=== PATIENT | male | born 1985 | race Caucasian/White ===

== ENCOUNTER 2018-08-06 21:48 | Emergency (ER) | payer SELFPAY ==
[2018-08-06 21:53] VITALS: BP 144/69; PULSE 88; RESP 15; TEMP 36.6; O2SAT 99
--- NOTE | 2018-08-06 21:56 | W.ED.GENAD ---
Discharge Plan Disposition Patient Disposition: HOME Condition: Good Discharge Details Chief Complaint: RashLesion Clinical Impression: Tinea cruris Primary Care Provider: Beronica De Souza ED Provider: Patrice Carlos Meds and New Rx's Prescriptions: New ketoconazole 2 % cream 1 applic TP DAILY Qty: 30 RF: 0 Discharge Instructions Instructions: Jojuan Itch (ED) Additional Instructions: Apply cream once a day for 2 weeks. Follow-up with primary care for does not get better. Return to ED if problem Referrals: Beronica De Souza MD, [place] [Primary Care Provider] - Medical Decision Making Patient with rash in the groin consistent with ringworm/tinea cruris. Patient will be placed on ketoconazole cream to use for the next 2-4 weeks. Follow-up with primary care for does not get better. Return to ED if problems. HPI General Mode of arrival: ambulatory. Date/Time Provider Initiated Documentation: 08/06/18 21:54. Limitations to Documentation: no limitations. Information obtained by: patient. HPI Narrative: Patient presents to ED with a rash in his groin area that is been present for about a month - month and a half. It is itchy and a little bit painful. He has tried hydrocortisone cream as well as athlete's foot cream with no results. He has not had time to see his primary care. He denies rash elsewhere. He denies other complaints Related Data Home Medications Medication Instructions Recorded Confirmed ketoconazole 1 applic TP DAILY #30 gm 08/06/18 Previous Rx's Medication Instructions Recorded ketoconazole 1 applic TP DAILY #30 gm 08/06/18 Allergies Allergy/AdvReac Type Severity Reaction Status Date / Time ibuprofen AdvReac Intermediate upsets Unverified 08/06/18 22:01 stomach General Stated Complaint: RashLesion DARYA: 4 Review of Systems Constitutional Denies chills and Denies fever(s) Genitourinary Denies hematuria and Denies dysuria Integumentary/Breasts Reports rash [facility] Social History Smoking/Tobacco Use Status: Current, status unknown Surgical History S/P ACL repair (Inactive) Exam Const General: cooperative, comfortable and no acute distress Orientation: alert and oriented x3 Skin Rashes: rashes noted (Erythematous type rash raised border central clearing mostly in ring form) groin Neuro General: alert, oriented x3, no focal motor deficits and CN's II-XI intact bilaterally
[2018-08-06 22:23] VITALS: BP 144/69; PULSE 88; RESP 15; TEMP 36.6; O2SAT 99
== END 2018-08-06 22:27 | disposition home or self-care (01) ==
PROVIDERS: Emergency Provider Emergency Medicine; PCP Family Medicine
DX: B35.6 Tinea cruris (principal)
CPT/HCPCS: 99283

== ENCOUNTER 2018-08-11 20:05 | Emergency (ER) | payer SELFPAY ==
[2018-08-11 20:07] VITALS: BP 134/82; PULSE 92; RESP 16; TEMP 36.9; O2SAT 100
[2018-08-11] MEDS: Lidocaine/Epinephri/Tetracaine Topical Gel 3 ML (20:37)
[2018-08-11] MEDS: Cephalexin 500 MG CAP PO (20:44)
--- NOTE | 2018-08-11 20:44 | ED.GENADUL_ITS ---
Discharge Plan Disposition Patient Disposition: HOME Condition: Stable Discharge Details Chief Complaint: Cellulitis Clinical Impression: Abscess of forearm, right, Cellulitis Primary Care Provider: Beronica De Souza ED Provider: Rogers Godoy Home Meds and New Rx's Prescriptions: New cephalexin [Keflex] 500 mg capsule 500 mg PO QID Qty: 28 RF: 0 No Action ketoconazole 2 % cream 1 applic TP DAILY Qty: 30 RF: 0 Discharge Instructions Instructions: Cellulitis (ED), Abscess (ED) Additional Instructions: Watch for any significant worsening of your symptoms or lack of improvement after 48 hours of antibiotic and if these occur return immediately to the emergency department for reevaluation. Otherwise take your antibiotics until fully complete and keep wound clean and dry. Perform dressing changes twice a day starting tomorrow. Referrals: Beronica De Souza MD, [place] [Primary Care Provider] - (As needed for reassessment) Medical Decision Making Patient presenting the emergency department for chief complaint of right arm injury with redness and swelling. Patient states approximately 1 week ago he was at work and working underneath a vehicle and using a torch when an sandra fell into his sleeve of his arm. That night he thought he just had a superficial abrasion over the past week he has noticed increasing redness, swelling, and discomfort to the area. Patient denies any other injury or trauma or other symptoms. Physical exam is positive for right erythematous forearm with 2 areas of induration and superficial abrasion. Bedside ultrasound was utilized to assess for any fluctuance and 2 areas were seen with concerning findings of abscess formation. Did discuss with patient risk versus benefit of I&D and he agreed to have procedure done. Topical let was placed on superficial skin prior to injection. Please see procedure note for I&D. Minimal amount of purulence was noted or expressed from the wound. Minimal complications. Patient placed upon Keflex 4 times daily for 1 week and encouraged to return for any new or significant worsening of symptoms. After discussion of diagnosis and plan of care patient has no further needs, questions, or concerns and states clear understanding to return to the emergency department for any worsening symptoms. HPI General Mode of arrival: ambulatory . Date/Time Provider Initiated Documentation: 08/11/18 20:10 . Limitations to Documentation: no limitations . Information obtained by: patient and RN notes reviewed . History of Present Illness 33 year old M presents to the emergency department with the chief complaint of Right arm infection, described as mild, with intensity rated at 4. Quality is described as other (pressure), and is localized to the right and upper extremity. Patient started experiencing this week(s) (1) and it has been constant. No exacerbating factors reported . Patient notes no other symptoms.. Patient did receive the following treatments prior to arrival, none Related Data Home Medications Medication Instructions Recorded Confirmed ketoconazole 1 applic TP DAILY #30 gm 08/06/18 08/11/18 cephalexin [Keflex] 500 mg PO QID #28 cap NS 08/11/18 Previous Rx's Medication Instructions Recorded ketoconazole 1 applic TP DAILY #30 gm 08/06/18 cephalexin [Keflex] 500 mg PO QID #28 cap NS 08/11/18 Allergies Allergy/AdvReac Type Severity Reaction Status Date / Time ibuprofen AdvReac Intermediate upsets Unverified 08/11/18 20:12 stomach General Stated Complaint: Cellulitis DARYA: 3 Review of Systems Constitutional Denies chills, Denies fatigue and Denies fever(s) Cardiovascular Denies chest pain and Denies dyspnea Respiratory Denies dyspnea Integumentary/Breasts Reports as per HPI and Reports wounds Endocrine Denies fatigue PFSH Social History Smoking/Tobacco Use Status: Current, status unknown Surgical History S/P ACL repair (Inactive) Exam Const General: cooperative, healthy appearing, comfortable and no acute distress Nutritional Appearance: average body habitus Orientation: alert, awake and oriented x3 Resp Effort & Inspection: normal respiratory effort and able to speak in complete sentences Skin General skin exam: erythema (To right forearm with 2 areas of abrasion and induration) Course Vital Signs Temperature 36.9 C 08/11/18 20:07 Pulse 92 H 08/11/18 20:07 Respiratory Rate 16 08/11/18 20:07 Blood Pressure 134/82 08/11/18 20:07 Pulse Oximetry 100 08/11/18 20:07 Temperature 36.9 C 08/11/18 20:07 Temperature Source Skin 08/11/18 20:07 Pulse 92 H 08/11/18 20:07 Respiratory Rate 16 08/11/18 20:07 Respiratory Effort 08/11/18 20:10 Blood Pressure 134/82 08/11/18 20:07 Blood Pressure Position Sitting 08/11/18 20:07 Pulse Oximetry 100 08/11/18 20:07 Oxygen Delivery Method Room Air 08/11/18 20:07 Oxygen Flow Rate 0 08/11/18 20:07 Pain Level 4 08/11/18 20:07 Procedures Abscess I/D Site: Upper Extremity Side (if applicable): Right Sedation/analgesia: None Local Anesthetic: Lidocaine 1% Amount of anesthesia used (mL): 8 Technique: Needle Aspiration and Incised with #11 Blade Amount of fluid expressed (mL): 1 Irrigation: Yes Packing used?: None Complications: Bleeding
[2018-08-11] MEDS: Cephalexin 500 MG CAP 1500 MG PO (20:55)
[2018-08-11 21:34] VITALS: BP 134/82; PULSE 92; RESP 16; TEMP 36.9; O2SAT 100
== END 2018-08-11 21:34 | disposition home or self-care (01) ==
LOC: ER 21:44
PROVIDERS: Emergency Provider Nurse Practitioner Family; PCP Family Medicine
DX: L02.413 Cutaneous abscess of right upper limb (principal)
CPT/HCPCS: 10060

== ENCOUNTER 2018-12-12 17:54 | Emergency (ER) | payer BC, SELFPAY ==
--- NOTE | 2018-12-12 17:59 | DI.RAD_ITS ---
SYMPTOM/DIAGNOSIS: PAIN, S/P CRUSH INJURY LEFT HAND: Three views. There is a fracture seen in the neck of the left fifth metacarpal. The distal fracture is angulated anteriorly. No other fracture or dislocation is seen. No radiopaque foreign bodies are seen in the soft tissues.
--- NOTE | 2018-12-12 17:59 | W.ED.GENAD ---
Discharge Plan Disposition Patient Disposition: HOME Condition: Stable Discharge Details Chief Complaint: Orthopedic Clinical Impression: Fracture of fifth metacarpal bone of left hand Primary Care Provider: Beronica De Souza ED Provider: Emerson Wesley Home Meds and New Rx's Prescriptions: No Action ketoconazole 2 % cream 1 applic TP DAILY Qty: 30 RF: 0 cephalexin [Keflex] 500 mg capsule 500 mg PO QID Qty: 28 RF: 0 Discharge Instructions Instructions: Boxer Fracture (ED) Additional Instructions: call orthopedics tomorrow for an appointment if you have pain you can take 1000mg tylenol and 600mg ibuprofen every 6 hours for pain as needed Stand Alone Forms: Work Release Referrals: Amador Stratton MD [ [facility] STAFF PHYSICIAN] - Medical Decision Making 33 yo male states on Wednesday logs fell and landed on his left hand, has had pain since so came here tonight for an eval. Denies loc or hitting head, no pain elsewhere. Has intact sensation, cap refill less than 2 seconds. Has pain over mid 5th and 4th metatarsal, no pain in wrist, full rom of the wrist and no scaphoid tenderness, no findings to suggest wrist fx or injury. Will xray hand to eval for fx xray on my read shows 5th metacarapal fx. will have him f/u with ortho, placed in boxer's splint Differential Diagnosis contusion, sprain, strain Imaging Data Radiologic Study: Attestation: I personally reviewed and interpreted this imaging study as follows: Imaging: X-Ray My impression: 5th metacarpal fx HPI General Mode of arrival: ambulatory. Date/Time Provider Initiated Documentation: 12/12/18 17:56. Limitations to Documentation: no limitations. Information obtained by: patient. History of Present Illness 33 year old M presents to the emergency department with the chief complaint of left hand pain, described as moderate, with intensity rated at 6. Quality is described as aching, and is localized to the left and upper extremity. Patient reports no radiation. Patient started experiencing this day(s) (2) and it has been constant. Rest improves symptom(s), Movement worsens symptoms . Patient notes no other symptoms.. Patient did receive the following treatments prior to arrival, none Related Data Home Medications Medication Instructions Recorded Confirmed ketoconazole 1 applic TP DAILY #30 gm 08/06/18 08/11/18 cephalexin [Keflex] 500 mg PO QID #28 cap NS 08/11/18 Previous Rx's Medication Instructions Recorded ketoconazole 1 applic TP DAILY #30 gm 08/06/18 cephalexin [Keflex] 500 mg PO QID #28 cap NS 08/11/18 Allergies Allergy/AdvReac Type Severity Reaction Status Date / Time ibuprofen AdvReac Intermediate upsets Unverified 08/11/18 20:12 stomach General DARYA: 3 Review of Systems Review of Systems All systems reviewed & are unremarkable except as noted in HPI and below Constitutional Denies chills and Denies fever(s) ENT Denies change in voice Cardiovascular Denies chest pain and Denies dyspnea Respiratory Denies cough and Denies dyspnea Gastrointestinal Denies abdominal pain, Denies nausea and Denies vomiting Genitourinary Denies dysuria Musculoskeletal Denies joint swelling Integumentary/Breasts Denies rash [facility] Social History Smoking and Tabacco status: Current, status unknown Exam Const General: no acute distress Orientation: alert [facility] Head: normal to inspection Ears: external ears normal General nose exam: external nose normal Mouth: moist mucous membranes Eyes General: appearance normal, both eyes and all related structures Neck Neck: normal visual inspection Resp Effort & Inspection: normal respiratory effort and able to speak in complete sentences Cardio Rate: regular rate Skin General skin exam: no rashes or lesions noted Neuro General: alert and oriented x3 Extrem General: normal capillary refill Psych Mental Status: mental status grossly normal
--- NOTE | 2018-12-12 18:00 | NUR.NOTE ---
pt crushed his left hand under a wood pile on Wednesday night. noted swelling
[2018-12-12 18:01] VITALS: BP 135/87; PULSE 64; RESP 14; TEMP 37.4; O2SAT 79
--- NOTE | 2018-12-12 18:02 | ED.GENADUL_ITS ---
Discharge Plan Disposition Patient Disposition: HOME Condition: Stable Discharge Details Chief Complaint: Orthopedic Clinical Impression: Fracture of fifth metacarpal bone of left hand Primary Care Provider: Beronica De Souza ED Provider: Emerson Wesley Home Meds and New Rx's Prescriptions: No Action ketoconazole 2 % cream 1 applic TP DAILY Qty: 30 RF: 0 cephalexin [Keflex] 500 mg capsule 500 mg PO QID Qty: 28 RF: 0 Discharge Instructions Instructions: Boxer Fracture (ED) Additional Instructions: call orthopedics tomorrow for an appointment if you have pain you can take 1000mg tylenol and 600mg ibuprofen every 6 hours for pain as needed Stand Alone Forms: Work Release Referrals: Amador Stratton MD [ [facility] STAFF PHYSICIAN] - Medical Decision Making 33 yo male states on Wednesday logs fell and landed on his left hand, has had pain since so came here tonight for an eval. Denies loc or hitting head, no pain elsewhere. Has intact sensation, cap refill less than 2 seconds. Has pain over mid 5th and 4th metatarsal, no pain in wrist, full rom of the wrist and no scap hoid tenderness, no findings to suggest wrist fx or injury. Will xray hand to eval for fx xray on my read shows 5th metacarapal fx. will have him f/u with ortho, placed in boxer's splint Differential Diagnosis contusion, sprain, strain Imaging Data Radiologic Study: Attestation: I personally reviewed and interpreted this imaging study as follows: Imaging: X-Ray My impression: 5th metacarpal fx HPI General Mode of arrival: ambulatory . Date/Time Provider Initiated Documentation: 12/12/18 17:56 . Limitations to Documentation: no limitations . Information obtained by: patient . History of Present Illness 33 year old M presents to the emergency department with the chief complaint of left hand pain, described as moderate, with intensity rated at 6. Quality is described as aching, and is localized to the left and upper extremity. Patient reports no radiation. Patient started experiencing this day(s) (2) and it has been constant. Rest improves symptom(s), Movement worsens symptoms . Patient notes no other symptoms.. Patient did receive the following treatments prior to arrival, none Related Data Home Medications Medication Instructions Recorded Confirmed ketoconazole 1 applic TP DAILY #30 gm 08/06/18 08/11/18 cephalexin [Keflex] 500 mg PO QID #28 cap NS 08/11/18 Previous Rx's Medication Instructions Recorded ketoconazole 1 applic TP DAILY #30 gm 08/06/18 cephalexin [Keflex] 500 mg PO QID #28 cap NS 08/11/18 Allergies Allergy/AdvReac Type Severity Reaction Status Date / Time ibuprofen AdvReac Intermediate upsets Unverified 08/11/18 20:12 stomach General DARYA: 3 Review of Systems Review of Systems All systems reviewed & are unremarkable except as noted in HPI and below Constitutional Denies chills and Denies fever(s) ENT Denies change in voice Cardiovascular Denies chest pain and Denies dyspnea Respiratory Denies cough and Denies dyspnea Gastrointestinal Denies abdominal pain, Denies nausea and Denies vomiting Genitourinary Denies dysuria Musculoskeletal Denies joint swelling Integumentary/Breasts Denies rash [facility] Social History Smoking and Tabacco status: Current, status unknown Exam Const General: no acute distress Orientation: alert [facility] Head: normal to inspection Ears: external ears normal General nose exam: external nose normal Mouth: moist mucous membranes Eyes General: appearance normal, both eyes and all related structures Neck Neck: normal visual inspection Resp Effort & Inspection: normal respiratory effort and able to speak in complete sentences Cardio Rate: regular rate Skin General skin exam: no rashes or lesions noted Neuro General: alert and oriented x3 Extrem General: normal capillary refill Psych Mental Status: mental status grossly normal
[2018-12-12] MEDS: Acetaminophen 500 MG TAB 1000 MG PO (18:04)
[2018-12-12 18:26] VITALS: BP 135/87; PULSE 64; RESP 14; TEMP 37.4; O2SAT 99
--- NOTE | 2018-12-12 18:48 | DI.VRAD_ITS ---
EXAM: XR Left Hand Complete, 3 or more Views EXAM DATE/TIME: 12/12/2018 5:59 PM CLINICAL HISTORY: 33 years old, male; Injury or trauma; Injury history: Dropped log on hand; Initial encounter; Blunt trauma (contusions or hematomas; Left TECHNIQUE: XR Left hand 3 or more views. COMPARISON: CR RIGHT THUMB 07/06/2016 10:50 PM FINDINGS: Bones/joints: Acute fracture, fifth metacarpal neck, mild dorsal apex angulation. No dislocation. Soft tissues: Dorsal hand soft tissue swelling. IMPRESSION: Acute fracture, fifth metacarpal neck, mild dorsal apex angulation. Dictated and Authenticated by: Paula Corcoran MD. Ordering:MELISSA Norman MD
== END 2018-12-12 18:26 | disposition home or self-care (01) ==
PROVIDERS: Emergency Provider Emergency Medicine; PCP Family Medicine
DX: S67.22XA Crushing injury of left hand, initial encounter (principal); S62.336A Displaced fracture of neck of fifth metacarpal bone, right hand, initial encounter for closed fracture; W23.0XXA Caught, crushed, jammed, or pinched between moving objects, initial encounter
CPT/HCPCS: 26600; 73130; L3807

== ENCOUNTER 2019-03-11 21:21 | Emergency (ER) | payer BC, SELFPAY ==
[2019-03-11 21:40] VITALS: BP 128/77; PULSE 78; RESP 79; TEMP 37; O2SAT 98
--- NOTE | 2019-03-11 21:51 | W.ED.GENAD ---
Discharge Plan Disposition Patient Disposition: HOME Condition: Stable Discharge Details Chief Complaint: Cellulitis Clinical Impression: Cellulitis and abscess of upper arm and forearm Primary Care Provider: Beronica De Souza ED Provider: Rogers Godoy Home Meds and New Rx's Prescriptions: Continued sertraline 25 mg tablet 25 mg PO DAILY Qty: 60 RF: 2 Discontinued doxycycline hyclate 100 mg tablet 100 mg PO BID 7 Days Qty: 14 RF: 0 Discharge Instructions Instructions: Cellulitis (ED) Additional Instructions: You may continue to apply warm packs 4 times daily for the next 3 to 4 days and take antibiotic as prescribed until fully complete. If any significant worsening of symptoms or rapid spread of redness return to the emergency department for reassessment otherwise follow-up with your primary care provider as needed Referrals: Beronica De Souza MD, [place] [Primary Care Provider] - (As needed for reassessment) Discharge Data Discharge Date/Time-TO BE ENTERED AT DEPARTURE: 03/12/19 00:05 Medical Decision Making Patient pending to the emergency department for chief complaint of right forearm abscess. Patient states that this began 3 days ago with a small pimple then progressively got worse. Patient saw his primary care yesterday morning and was placed up on doxycycline for concern of cellulitis. Patient states he has taken 3 doses and has only had worsening of symptoms. Bedside ultrasound was utilized to view the area of erythema and induration to the right forearm and showed fluid collection. Verbal consent was obtained for incision and drainage. Approximately hours of purulent bloody fluid was drained from the area and patient tolerated the procedure well except for a mild vasovagal episode that resolved quickly. Patient was switched from doxycycline to Keflex and Bactrim. I do not feel that patient had antibiotic failure but patient has responded well in the past to Keflex Bactrim. Return precautions discussed. After discussion of diagnosis and plan of care patient has no further needs, questions, or concerns and states clear understanding to return to the emergency department for any worsening symptoms. HPI General Mode of arrival: ambulatory. Date/Time Provider Initiated Documentation: 03/11/19 21:36. Limitations to Documentation: no limitations. Information obtained by: patient and RN notes reviewed. History of Present Illness 33 year old M presents to the emergency department with the chief complaint of Abscess, right forearm, described as moderate and similar to prior episodes, with intensity rated at 7. Quality is described as aching, and is localized to the right and upper extremity. Patient started experiencing this day(s) (3) and it has been constant. No relieving factors improve symptom(s), No exacerbating factors reported . Patient did receive the following treatments prior to arrival, other (Doxycycline) Related Data Home Medications Medication Instructions Recorded Confirmed sertraline 25 mg tablet 25 mg PO DAILY #60 tab 02/15/19 03/11/19 Previous Rx's Medication Instructions Recorded sertraline 25 mg tablet 25 mg PO DAILY #60 tab 02/15/19 Allergies Allergy/AdvReac Type Severity Reaction Status Date / Time ibuprofen AdvReac Intermediate upsets Unverified 03/11/19 21:39 stomach General Stated Complaint: Cellulitis DARYA: 3 Review of Systems Constitutional Denies chills and Denies fever(s) Gastrointestinal Denies nausea and Denies vomiting Musculoskeletal Denies deformity, Denies limited range of motion and Denies numbness Integumentary/Breasts Reports as per HPI Neurologic Denies numbness [facility] Surgical History S/P ACL repair (Inactive) Social History Smoking/Tobacco Use Status: Current, status unknown Tobacco Type: smokeless tobacco Alcohol Intake: never Drug use: Never Substance use type: does not use Do you feel safe at home: Yes Do you feel safe in your relationship?: Yes Exam Const General: cooperative and no acute distress Orientation: alert, awake and oriented x3 Resp Effort & Inspection: normal respiratory effort and able to speak in complete sentences Cardio Rate: regular rate Rhythm: regular rhythm Skin General skin exam: induration (And erythema to right proximal forearm) Course Vital Signs Temperature 37.0 C 03/11/19 21:40 Pulse 78 03/11/19 21:40 Respiratory Rate 79 H 03/11/19 21:40 Blood Pressure 128/77 03/11/19 21:40 Pulse Oximetry 98 03/11/19 21:40 Temperature 37.0 C 03/11/19 21:40 Pulse 78 03/11/19 21:40 Respiratory Rate 79 H 03/11/19 21:40 Respiratory Effort 03/11/19 21:40 Blood Pressure 128/77 03/11/19 21:40 Blood Pressure Position Sitting 03/11/19 21:40 Pulse Oximetry 98 03/11/19 21:40 Oxygen Delivery Method Room Air 03/11/19 21:40 Oxygen Flow Rate 0 03/11/19 21:40 Procedures Abscess I/D Site: Upper Extremity Side (if applicable): Right Sedation/analgesia: None Local Anesthetic: Lidocaine 1% Amount of anesthesia used (mL): 6 Technique: Incised with #11 Blade Amount of fluid expressed (mL): 3 Irrigation: Yes Packing used?: None
[2019-03-11] MEDS: Cephalexin 500 MG CAP PO (23:25)
[2019-03-11] MEDS: Sulfameth/Trimeth DS TAB 1 TAB PO (23:25)
--- NOTE | 2019-03-11 23:51 | ED.GENADUL_ITS ---
Discharge Plan Disposition Patient Disposition: HOME Condition: Stable Discharge Details Chief Complaint: Cellulitis Clinical Impression: Cellulitis and abscess of upper arm and forearm Primary Care Provider: Beronica De Souza ED Provider: Rogers Godoy Home Meds and New Rx's Prescriptions: Continued sertraline 25 mg tablet 25 mg PO DAILY Qty: 60 RF: 2 Discontinued doxycycline hyclate 100 mg tablet 100 mg PO BID 7 Days Qty: 14 RF: 0 Discharge Instructions Instructions: Cellulitis (ED) Additional Instructions: You may continue to apply warm packs 4 times daily for the next 3 to 4 days and take antibiotic as prescribed until fully complete. If any significant worsening of symptoms or rapid spread of redness return to the emergency department for reassessment otherwise follow-up with your primary care provider as needed Referrals: Beronica De Souza MD, [place] [Primary Care Provider] - (As needed for reassessment) Discharge Data Discharge Date/Time-TO BE ENTERED AT DEPARTURE: 03/12/19 00:05 Medical Decision Making Patient pending to the emergency department for chief complaint of right forearm abscess. Patient states that this began 3 days ago with a small pimple then progressively got worse. Patient saw his primary care yesterday morning and was placed up on doxycycline for concern of cellulitis. Patient states he has taken 3 doses and has only had worsening of symptoms. Bedside ultrasound was utilized to view the area of erythema and induration to the right forearm and showed fluid collection. Verbal consent was obtained for incision and drainage. Approximately hours of purulent bloody fluid was drained from the area and patient tolerated the procedure well except for a mild vasovagal episode that resolved quickly. Patient was switched from doxycycline to Keflex and Bactrim. I do not feel that patient had antibiotic failure but patient has responded well in the past to Keflex Bactrim. Return precautions discussed. After discussion of diagnosis and plan of care patient has no further needs, questions, or concerns and states clear understanding to return to the emergency department for any worsening symptoms. HPI General Mode of arrival: ambulatory . Date/Time Provider Initiated Documentation: 03/11/19 21:36 . Limitations to Documentation: no limitations . Information obtained by: patient and RN notes reviewed . History of Present Illness 33 year old M presents to the emergency department with the chief complaint of Abscess, right forearm, described as moderate and similar to prior episodes, with intensity rated at 7. Quality is described as aching, and is localized to the right and upper extremity. Patient started experiencing this day(s) (3) and it has been constant. No relieving factors improve symptom(s), No exacerbating factors reported . Patient did receive the following treatments prior to arrival, other (Doxycycline) Related Data Home Medications Medication Instructions Recorded Confirmed sertraline 25 mg tablet 25 mg PO DAILY #60 tab 02/15/19 03/11/19 Previous Rx's Medication Instructions Recorded sertraline 25 mg tablet 25 mg PO DAILY #60 tab 02/15/19 Allergies Allergy/AdvReac Type Severity Reaction Status Date / Time ibuprofen AdvReac Intermediate upsets Unverified 03/11/19 21:39 stomach General Stated Complaint: Cellulitis DARYA: 3 Review of Systems Constitutional Denies chills and Denies fever(s) Gastrointestinal Denies nausea and Denies vomiting Musculoskeletal Denies deformity, Denies limited range of motion and Denies numbness Integumentary/Breasts Reports as per HPI Neurologic Denies numbness [facility] Surgical History S/P ACL repair (Inactive) Social History Smoking/Tobacco Use Status: Current, status unknown Tobacco Type: smokeless tobacco Alcohol Intake: never Drug use: Never Substance use type: does not use Do you feel safe at home: Yes Do you feel safe in your relationship?: Yes Exam Const General: cooperative and no acute distress Orientation: alert, awake and oriented x3 Resp Effort & Inspection: normal respiratory effort and able to speak in complete sentences Cardio Rate: regular rate Rhythm: regular rhythm Skin General skin exam: induration (And erythema to right proximal forearm) Course Vital Signs Temperature 37.0 C 03/11/19 21:40 Pulse 78 03/11/19 21:40 Respiratory Rate 79 H 03/11/19 21:40 Blood Pressure 128/77 03/11/19 21:40 Pulse Oximetry 98 03/11/19 21:40 Temperature 37.0 C 03/11/19 21:40 Pulse 78 03/11/19 21:40 Respiratory Rate 79 H 03/11/19 21:40 Respiratory Effort 03/11/19 21:40 Blood Pressure 128/77 03/11/19 21:40 Blood Pressure Position Sitting 03/11/19 21:40 Pulse Oximetry 98 03/11/19 21:40 Oxygen Delivery Method Room Air 03/11/19 21:40 Oxygen Flow Rate 0 03/11/19 21:40 Procedures Abscess I/D Site: Upper Extremity Side (if applicable): Right Sedation/analgesia: None Local Anesthetic: Lidocaine 1% Amount of anesthesia used (mL): 6 Technique: Incised with #11 Blade Amount of fluid expressed (mL): 3 Irrigation: Yes Packing used?: None
== END 2019-03-12 00:05 | disposition home or self-care (01) ==
PROVIDERS: Emergency Provider Nurse Practitioner Family; PCP Family Medicine
DX: L03.113 Cellulitis of right upper limb (principal)
CPT/HCPCS: 99283

== ENCOUNTER 2020-06-23 21:19 | Emergency (ER) | payer OTHER, SELFPAY ==
[2020-06-23 21:23] VITALS: BP 141/61; PULSE 77; RESP 16; TEMP 37.1; O2SAT 87
--- NOTE | 2020-06-23 21:46 | ED.GENADUL_ITS ---
Discharge Plan Disposition Patient Disposition: HOME Condition: Stable Discharge Details Chief Complaint: Cellulitis Clinical Impression: Abscess of groin, left, Cellulitis of groin, left Primary Care Provider: Beronica De Souaz ED Provider: Ella Torres Home Meds and New Rx's Prescriptions: New sulfamethoxazole-trimethoprim [Bactrim DS] 800-160 mg tablet 1 tab PO BID 7 Days Qty: 14 RF: 0 Discharge Instructions Instructions: Abscess (ED) Additional Instructions: Drink plenty of fluids and get plenty of rest. Take Tylenol as needed and directed for pain. Take the antibiotics until finished. Return to the emergency department in 2 days for wound check and packing r emoval. Return immediately to the emergency department if you develop any worsening or new concerning symptoms. Discharge Data Discharge Date/Time-TO BE ENTERED AT DEPARTURE: 06/23/20 23:20 Discharge Physician: Ella Torres Medical Decision Making 35-year-old male presents with left groin abscess and cellulitis for the past few days. Started draining today. Denies fever. His vitals are within normal limits. His oxygen saturation was listed as 87 on arrival but this was not accurate and was within normal limits while in the ED. He has a 3 x 4 cm fluctuant indurated abscess with a 7 x 7 cm surrounding area of cellulitis noted to the left groin. Area was sterilized with Betadine swab and anesthetized with 10 cc of lidocaine with epinephrine. Center area punctured with 11 blade and approximate 5 cc of purulent material expressed followed by serous drainage. Area was irrigated with normal saline and packed with quarter inch iodoform and dressed with gauze dressing. Patient was given a dose of Bactrim here as well as to go and prescription. He was advised to return to the ED in 2 days for packing removal and wound check. Usual and customary return precautions given prior to discharge. Medical Records Medical records reviewed: Yes I reviewed the patient's medical records. HPI General Mode of arrival: ambulatory . Date/Time Provider Initiated Documentation: 06/23/20 21:39 . Limitations to Documentation: no limitations . Information obtained by: patient . HPI Narrative: Patient is a 35-year-old male who presents with a left groin abscess for the past few days. Patient states he noticed tonight it was draining clear red fluid and becoming more painful. He denies any known fever. He states he shaved the area tonight around it so he could clean it better. Related Data Home Medications Medication Instructions Recorded Confirmed sulfamethoxazole-trimethoprim 1 tab PO BID 7 Days #14 tab 06/23/20 [Bactrim DS] Previous Rx's Medication Instructions Recorded sulfamethoxazole-trimethoprim 1 tab PO BID 7 Days #14 tab 06/23/20 [Bactrim DS] Allergies Allergy/AdvReac Type Severity Reaction Status Date / Time ibuprofen AdvReac Intermediate upsets Unverified 06/23/20 21:26 stomach General Stated Complaint: Cellulitis DARYA: 4 Review of Systems All systems reviewed & are unremarkable except as noted in HPI and below Constitutional Constitutional: Reports as per HPI, Denies chills and Denies fever(s) Eyes Eyes: Denies blurry vision ENT Ears, Nose, Mouth, and Throat: Denies dizziness, Denies sore throat and Denies throat swelling Cardiovascular Cardiovascular: Denies chest pain and Denies dyspnea Respiratory Respiratory: Denies cough and Denies dyspnea Gastrointestinal Gastrointestinal: Denies abdominal pain, Denies diarrhea and Denies vomiting Genitourinary Genitourinary: Denies hematuria and Denies dysuria Musculoskeletal Musculoskeletal: Denies back pain and Denies numbness Integumentary/Breasts Skin/Breast: Denies lesions and Denies rash Neurologic Neurologic: Denies dizziness, Denies localized weakness and Denies numbness Allergic/Immunologic Allergic/Immunologic: Denies throat swelling [facility] Medical History (Updated 06/23/20 @ 23:18 by Ella Torres DO) Cellulitis (Acute) Surgical History S/P ACL repair (Inactive) Social History Smoking/Tobacco Use Status: Current, status unknown Tobacco Type: smokeless tobacco Smokeless tobacco user: chewing tobacco Alcohol Intake: never Drug use: Never Substance use type: does not use Do you feel safe at home: Yes Do you feel safe in your relationship?: Yes Exam Const General: cooperative, healthy appearing and no acute distress HENMT Head: normal to inspection Face and sinus: normal facial exam Eyes General: appearance normal, both eyes and all related structures Pupils: PERRL EOM: EOM intact bilaterally Neck Neck: normal visual inspection and No submandibular swelling Lymphatic: no lymphadenopathy noted Chest Chest: normal inspection of the chest and no tenderness Resp Effort & Inspection: normal respiratory effort and able to speak in complete sentences Auscultation: clear to auscultation bilaterally Cardio Rate: regular rate Rhythm: regular rhythm GI Inspection: normal to inspection Palpation: soft, not firm, not rigid and nontender Auscultation: normal bowel sounds Male General Exam: Yes normal external exam Back/Spine/Pelvis Thoracic/Lumbar Spine: thoracic and lumbar spine normal to inspection Pelvis: no pain with anterior-posterior compression Skin Full body images: 1. 4 x 3 cm tender fluctuant indurated erythematous abscess. 2. Area of surrounding faint erythema consistent with cellulitis Neuro General: patient alert, patient awake and patient oriented x3 Cognition: normal cognition Speech: speech normal Motor: muscle tone normal throughout Sensory Exam: no sensory deficits noted Extrem General: normal to inspection, full ROM, capillary refill normal, no calf tenderness bilaterally and no edema Psych Appearance: grossly normal Mental Status: mental status grossly normal Speech and Movement: speech and movement normal Affect: normal affect Course Vital Signs Vital signs: Vital Signs Temperature 98.8 F 06/23/20 21:23 Pulse 77 06/23/20 21:23 Respiratory Rate 16 06/23/20 21:23 Blood Pressure 141/61 H 06/23/20 21:23 Pulse Oximetry 87 L 06/23/20 21:23 Temperature 98.8 F 06/23/20 21:23 Temperature Source Skin 06/23/20 21:23 Pulse 77 06/23/20 21:23 Respiratory Rate 16 06/23/20 21:23 Respiratory Effort Non-Labored 06/23/20 21:27 Blood Pressure 141/61 H 06/23/20 21:23 Pulse Oximetry 87 L 06/23/20 21:23 Pain Level 7 06/23/20 21:23
[2020-06-23] MEDS: Sulfameth/Trimeth DS TAB 1 TAB PO (23:19)
[2020-06-23] MEDS: Sulfameth/Trimeth DS, 2 TABS/BTL 1 TAB PO (23:19)
== END 2020-06-23 23:20 | disposition home or self-care (01) ==
PROVIDERS: Emergency Provider Physician Assistant; PCP Family Medicine
DX: L02.214 Cutaneous abscess of groin (principal); L03.314 Cellulitis of groin
CPT/HCPCS: 10061

== ENCOUNTER 2020-12-03 19:58 | Emergency (ER) | payer BC, SELFPAY ==
--- NOTE | 2020-12-03 20:00 | DI.CT_ITS ---
EXAM: CT ABDOMEN PELVIS W CLINICAL HISTORY: lower abdominal pain. TECHNIQUE: Imaging Protocol: Axial computed tomography images with coronal and sagittal reformatted images were created and reviewed CONTRAST MATERIAL: Intravenous: Omnipaque 100cc Oral: None COMPARISON: No exams were available for comparison FINDINGS: VISUALIZED LUNG BASES: No nodules nor pleural effusions evident. ABDOMEN: There is no ascites. LIVER: There are no obvious focal hepatic lesions evident . GALLBLADDER/BILIARY: No obvious gallbladder pathology. CBD is not dilated. PANCREAS: No evidence of pancreatic mass nor dilatation of the pancreatic duct. SPLEEN: Spleen is not enlarged. No obvious intrasplenic lesions. Splenic and portal veins are paten t. ADRENALS: There are no significant adrenal masses. KIDNEYS:No cysts evident. No solid renal masses. No calculi nor hydronephrosis.. ABDOMINAL AORTA: Abdominal aorta is not enlarged and there is no [id number] adenopat hy. ABDOMINAL WALL/GI: No evidence of significant anterior abdominal wall hernia. No bowel obstruction. PELVIS: GI: No evidence of appendicitis.No evidence of sigmoid diverticulitis.Some mural suggestion mural thi ckening is noted in the terminal ileum, possibly inflammatory bowel disease but difficult to assess w ithout oral contrast. LYMPH NODES: There is no intrapelvic nor inguinal adenopathy. REPRODUCTIVE: Unremarkable. Prostate gland not enlarged. URINARY BLADDER: Mild uniform thickening of the urinary bladder wall, possibly related to under diste ntion. OSSEOUS: No significant osseous lesions. Schmorl's node invagination of the superior endplate of L2 is noted. IMPRESSION: 1. Subtle suggestion of possible inflammatory bowel disease involving the terminal ileum. Please not e that there is no oral contrast on this study. There is no bowel obstruction, free air, nor abscess . 2. Mild uniform thickening of the urinary bladder is noted. The prostate gland is not enlarged. 3. There is no ascites. 4. RADIATION DOSE DELIVERED: 769.06mGy.cm Total DLP DATA REPOSITORY: All CT scans at this facility are submitted to the National Radiology Data Registry (NRDR) Dose Index Registry (DIR) with the [employer] ([employer]). RADIATION OPTIMIZATION: All CT scans at this facility use at least one of these dose optimization te chniques: automated exposure control; mA and/or kV adjustment per patient size (includes targeted exa ms where dose is matched to clinical indication); or iterative reconstruction.
[2020-12-03 20:02] VITALS: BP 144/77; PULSE 50; RESP 16; TEMP 36.6; O2SAT 97
--- NOTE | 2020-12-03 20:15 | ED.GENADUL_ITS ---
Discharge Plan Disposition Patient Disposition: HOME Condition: Stable Discharge Details Clinical Impression: Ileitis, terminal Primary Care Provider: Beronica De Souza ED Provider: Emerson Wesley Home Meds and New Rx's Prescriptions: New metronidazole [Flagyl] 500 mg tablet 500 mg PO Q8H Qty: 21 RF: 0 ciprofloxacin HCl 500 mg tablet 500 mg PO BID Qty: 14 RF: 0 ondansetron 4 mg tablet,disintegrating 4 mg PO Q8H PRN (Reason: nausea and vomiting) Qty: 30 RF: 0 Discharge Instructions Additional Instructions: Your lab work did not show any concerning findings you have inflammation of part of your bowel called the ileum that was seen on the cat scan follow up with your primary care provider within 1 week, I placed you on our follow up list to help arrange for this if you have worsening pain, persistent vomit or feel more ill return to the emergency department Medical Decision Making 35 yo male with no significant pmhx comes in with cc of lower abdominal pain and nausea since yesterday that he has never had before. Denies diarrhea, urinary symptoms, chset pain, dyspnea, fevers. No testicle pain or swelling or tenderness. On exam his abdomen is nondistended and has tenderness with deep palpation to the lower right and left abdomen without guarding. Given location of symptoms and tenderness on exam will obtain ct to evaluate for appendicitis vs diverticulitis and also labs to evaluate for possible pancreatitis. No pain out of proportion to exam to suggest mesenteric ischemia. labs unremarkable, ct shows terminal ileitis. He denies ever having symptoms like this and no family history of inflammatory bowel disease so doubt crohn's so likely infectious enteritis. He only has mild pain now and feels comfortable with d/c. I will start him on cipro/flagyl and have him f/u with pcp , return precautions given to the patient on indications to return to the emergency department Differential Diagnosis Differential Diagnosis: diverticulitis, appendicitis, colitis Imaging Data Radiologic Study: Attestation: I personally reviewed and interpreted this imaging study as follows: Imaging: CT Scan Radiologist's impression: IMPRESSION: Terminal ileitis suggestive of inflammatory bowel disease such as Crohn's versus infectious enteritis. No involvement of the colon. No perirectal abscess. HPI General Mode of arrival: ambulatory . Date/Time Provider Initiated Documentation: 12/03/20 20:00 . Limitations to Documentation: no limitations . Information obtained by: patient . History of Present Illness 35 year old M presents to the emergency department with the chief complaint of abdominal pain, described as moderate, Patient reports no radiation. Patient started experiencing this day(s) (1) and it has been constant. No relieving factors improve symptom(s), No exacerbating factors reported . Patient did receive the following treatments prior to arrival, none Related Data Home Medications Medication Instructions Recorded Confirmed ciprofloxacin HCl 500 mg PO BID #14 tab 12/03/20 metronidazole [Flagyl] 500 mg PO Q8H #21 tab 12/03/20 ondansetron 4 mg PO Q8H PRN #30 tab 12/03/20 Previous Rx's Medication Instructions Recorded ciprofloxacin HCl 500 mg PO BID #14 tab 12/03/20 metronidazole [Flagyl] 500 mg PO Q8H #21 tab 12/03/20 ondansetron 4 mg PO Q8H PRN #30 tab 12/03/20 Allergies Allergy/AdvReac Type Severity Reaction Status Date / Time ibuprofen AdvReac Intermediate upsets Unverified 06/23/20 21:26 stomach General Stated Complaint: Abd Prob DARYA: 3 Review of Systems All systems reviewed & are unremarkable except as noted in HPI and below Constitutional Constitutional: Denies chills, Denies fever(s) and Denies weakness Cardiovascular Cardiovascular: Denies chest pain and Denies dyspnea Respiratory Respiratory: Denies cough and Denies dyspnea Musculoskeletal Musculoskeletal: Denies joint swelling Neurologic Neurologic: Denies weakness Psychiatric Psychiatric: Denies depression PFSH Medical History (Updated 12/03/20 @ 22:05 by Emerson Wesley MD) Cellulitis Surgical History S/P ACL repair Social History Smoking/Tobacco Use Status: Current, status unknown Tobacco Type: smokeless tobacco Smokeless tobacco user: chewing tobacco Smoking risk assessment performed?: Yes Alcohol Intake: never Drug use: Never Substance use type: does not use Do you feel safe at home: Yes Do you feel safe in your relationship?: Yes Exam Const General: no acute distress Orientation: alert HENMT Head: normal to inspection Ears: external ears normal General nose exam: external nose normal Mouth: moist mucous membranes Eyes General: appearance normal, both eyes and all related structures Neck Neck: normal visual inspection Resp Effort & Inspection: normal respiratory effort and able to speak in complete sentences Cardio Rate: regular rate GI Palpation: soft, not rigid and tender Skin General skin exam: no rashes or lesions noted Neuro General: patient alert and patient oriented x3 Extrem General: normal to inspection Psych Mental Status: mental status grossly normal Course Vital Signs Vital signs: Vital Signs Temperature 36.6 C 12/03/20 20:02 Pulse 50 L 12/03/20 20:02 Respiratory Rate 16 12/03/20 20:02 Blood Pressure 144/77 H 12/03/20 20:02 Pulse Oximetry 97 12/03/20 20:02 Temperature 36.6 C 12/03/20 20:02 Temperature Source Skin 12/03/20 20:02 Pulse 50 L 12/03/20 20:02 Respiratory Rate 16 12/03/20 20:02 Blood Pressure 144/77 H 12/03/20 20:02 Blood Pressure Position Sitting 12/03/20 20:02 Pulse Oximetry 97 12/03/20 20:02 Oxygen Delivery Method Cpap 12/03/20 20:02 Oxygen Flow Rate 0 12/03/20 20:02 Pain Level 7 12/03/20 20:02
[2020-12-03 20:24] LABS: Bilirubin Negative (Negative); Blood Negative (Negative); Clarity Clear (Clear); Glucose Negative (Negative); Ketones Negative (Negative); Leukocyte Esterase Negative (Negative); Nitrite Negative (Negative); Specific Gravity 1.025 (1.005-1.025); Urobilinogen 0.2 EU/dL (Up TO 0.2)
[2020-12-03 20:30] LABS: Abs Immature Grans 0.04 10^3/uL (0.0-0.06); Absolute Basophil Count 0.05 10^3/uL (0.0-0.2); Absolute Eosinophil Count 0.09 10^3/uL (0.0-0.7); Absolute Monocyte Count 0.61 10^3/uL (0.1-0.8); Absolute Neutrophil Count 8.93 10^3/uL (1.2-6.7); Basophils % 0.4; Eosinophils % 0.8; HCT 43.8 % (40.0-50.0); HGB 14.8 g/dL (13.5-17.5); Immature Grans % 0.4; Lymphocytes % 14.1; MCH 29.5 pg (27.0-33.0); MCHC 33.8 % (32.0-36.0); MCV 87.3 fL (80-95); MPV 8.4 fL (8.0-11.0); Monocytes % 5.4; Neutrophils % 78.9; Nucleated RBC 0 %; Platelet Count 252 10^3/uL (130-400); RBC 5.02 10^6/uL (4.36-5.78); RDW 12.7 % (11.8-14.1); RDW-SD 40.5 fL; WBC 11.32 10^3/uL (4.4-10.8)
[2020-12-03] MEDS: Normal Saline 1,000 ML 1000 ML IV (20:32)
[2020-12-03] MEDS: Ondansetron 4 MG/2 ML VIAL IVP (20:34)
[2020-12-03] MEDS: Ketorolac 15 MG/ML VIAL IVP (20:36)
[2020-12-03] MEDS: Omnipaque 350 MG/ML 100 ML BTL IJ (20:41)
[2020-12-03] MEDS: Normal Saline - Diluent 50 ML VIAL IV (20:45)
[2020-12-03] MEDS: Normal Saline Flush 10 ML SYR IVP (20:46)
[2020-12-03 20:48] LABS: ALT 35 U/L (16-63); AST 15 U/L (15-37); Albumin 4.2 g/dL (3.4-5.0); Alkaline Phosphatase 56 U/L (46-116); Anion Gap 4.7 mmol/L (3-11); BUN 10 mg/dL (7-18); Bilirubin, Total 0.4 mg/dL (0.2-1.0); CO2 30.3 mmol/L (21.0-32.0); Calcium 9.1 mg/dL (8.5-10.1); Chloride 104 mmol/L (98-107); Glucose 114 mg/dL (74-106); Potassium 3.7 mmol/L (3.5-5.1); Sodium 139 mmol/L (136-145); Total Protein 7.8 g/dL (6.4-8.2)
[2020-12-03 20:55] LABS: Lipase 114 U/L (73-393)
--- NOTE | 2020-12-03 21:03 | DI.VRAD_ITS ---
PROCEDURE INFORMATION: Exam: CT Abdomen And Pelvis With Contrast Exam date and time: 12/03/2020 8:44 PM Age: 35 years old Clinical indication: Localized; Patient HX: Lower abdominal pain TECHNIQUE: Imaging protocol: Computed tomography of the abdomen and pelvis with contrast. Radiation optimization: All CT scans at this facility use at least one of these dose optimization techniques: automated exposure control; mA and/or kV adjustment per patient size (includes targeted exams where dose is matched to clinical indication); or iterative reconstruction. Contrast material: OMNIPAQUE 350; Contrast volume: 100 ml; Contrast route: INTRAVENOUS (IV); COMPARISON: No relevant prior studies available. FINDINGS: Lungs: The visualized lung bases are clear. Liver: No hepatic mass. Gallbladder and bile ducts: Nonspecific linear hypodensity in segment 4 measuring 10 mm which may represent a small cyst versus prominent bile duct. Pancreas: Normal. No ductal dilation. Spleen: Normal. No splenomegaly. Adrenal glands: Normal. No mass. Kidneys and ureters: No renal, ureteric, or urinary bladder calculus. No hydronephrosis. Stomach and bowel: Thickening of the terminal ileum with mucosal enhancement but no evidence for adjacent abscess, stricture or upstream obstruction. No perirectal abscess. No colonic involvement. Appendix: Normal appendix. No appendicitis. Intraperitoneal space: Unremarkable. No free air. No significant fluid collection. Vasculature: Unremarkable. No abdominal aortic aneurysm. Lymph nodes: Unremarkable. No enlarged lymph nodes. Urinary bladder: Unremarkable as visualized. Reproductive: Unremarkable as visualized. Bones/joints: Unremarkable. No acute fracture. Soft tissues: Unremarkable. IMPRESSION: Terminal ileitis suggestive of inflammatory bowel disease such as Crohn's versus infectious enteritis. No involvement of the colon. No perirectal abscess. Dictated and Authenticated by: Jorge Bazan MD. Ordering:MELISSA Norman MD
[2020-12-03 21:28] VITALS: BP 141/84; PULSE 72; RESP 15; O2SAT 98
[2020-12-03] MEDS: Ondansetron O.D.T. 4 MG TABEF, 3 TABS/BTL PO (22:02)
[2020-12-03] MEDS: metroNIDAZOLE 500 MG TAB PO (22:02)
[2020-12-03] MEDS: Ciprofloxacin 500 MG TAB PO (22:02)
[2020-12-03 22:16] VITALS: BP 141/84; PULSE 72; RESP 15; TEMP 36.6; O2SAT 98
--- NOTE | 2020-12-04 04:09 | NUR.NOTE ---
Nursing Note: referral faxed 12/04/2020 to care management pt to follow up with pcp a[place]
== END 2020-12-03 22:16 | disposition home or self-care (01) ==
PROVIDERS: Emergency Provider Emergency Medicine; PCP Family Medicine
DX: K50.00 Crohn's disease of small intestine without complications (principal)
CPT/HCPCS: 80053; 83690; 96361; 96374; 96375; 99285; 74177; 81003; 82248; 85025; 99284; J1885; J2405; J3490

== ENCOUNTER 2021-01-02 17:53 | Outpatient (REF) | payer BC, SELFPAY ==
[2021-01-03 13:10] LABS: COVID-19 RT-PCR UVMMC Result Negative (Negative)
== END 2021-01-02 17:54 | disposition home or self-care (01) ==
LOC: LBN 17:53
PROVIDERS: PCP Nurse Practitioner Family; Visit Provider Family Medicine
DX: Z20.822 Contact with and (suspected) exposure to COVID-19 (principal); J06.9 Acute upper respiratory infection, unspecified
CPT/HCPCS: U0003

== ENCOUNTER 2021-05-26 19:26 | Outpatient (REF) | payer SELFPAY ==
[2021-05-28 15:06] LABS: Chlamydia Result Negative (Negative); GC Result Negative (Negative)
== END 2021-05-26 19:27 | disposition home or self-care (01) ==
LOC: NCHCN 19:26
PROVIDERS: PCP Nurse Practitioner Family; Visit Provider Nurse Practitioner Family
DX: R36.9 Urethral discharge, unspecified (principal)
CPT/HCPCS: 87491; 87591

== ENCOUNTER 2022-05-18 18:33 | Outpatient (REF) | payer SELFPAY ==
[2022-05-20 15:09] LABS: Chlamydia Result Negative (Negative); GC Result Negative (Negative)
== END 2022-05-18 18:34 | disposition home or self-care (01) ==
LOC: LBN 18:33
PROVIDERS: PCP Nurse Practitioner Family; Visit Provider Nurse Practitioner Family
DX: Z11.3 Encounter for screening for infections with a predominantly sexual mode of transmission (principal)
CPT/HCPCS: 87491; 87591

== ENCOUNTER 2023-06-17 19:00 | Emergency (ER) | payer BC, SELFPAY ==
[2023-06-17 19:06] VITALS: BP 140/86; PULSE 68; RESP 20; TEMP 37.1; O2SAT 99
--- NOTE | 2023-06-17 19:15 | DI.RAD_ITS ---
Exam(s) XR RIBS LT W PA LAT CHEST EXAM: XR RIBS LT W PA LAT CHEST CLINICAL HISTORY: injury left side of chest, tender 5-6 ant TECHNIQUE: 2D digital imaging was performed. COMPARISON: CR CHEST 2 VIEWS PA,LAT from 11/17/2016 FINDINGS: HEART: Normal size. Aorta: Not dilated. PULMONARY VASCULATURE: Normal. LUNGS: Clear. PLEURAL SPACE: No pleural effusion or pneumothorax. BONE:Unremarkable for age. No rib fractures identified. IMPRESSION: No acute abnormality. DATA REPOSITORY: RADIATION DOSE DELIVERED:
[2023-06-17] MEDS: oxyCODONE 5 mg/Acetaminophen 325 mg TAB 1 TAB PO (19:48)
--- NOTE | 2023-06-17 20:40 | DI.VRAD_ITS ---
PROCEDURE INFORMATION: Exam: XR Left Ribs Exam date and time: 06/17/2023 7:58 PM Age: 38 years old Clinical indication: Injury or trauma; Other: Crushing injury 2 days ago; Blunt trauma (contusions or hematomas); Rib area, left side; Injury date: 06/15/23; Injury details: Injury left side of chest, tender 5-6 ant TECHNIQUE: Imaging protocol: Radiologic exam of the left ribs. Views: 2 views. COMPARISON: CR CHEST 2 VIEWS PA,LAT 11/17/2016 8:21 PM FINDINGS: Bones/joints: Normal. Soft tissues: Normal. IMPRESSION: No acute findings. PROCEDURE INFORMATION: Exam: XR Chest Exam date and time: 06/17/2023 7:58 PM Age: 38 years old Clinical indication: Injury or trauma; Other: Crushing injury 2 days ago; Blunt trauma (contusions or hematomas); Rib area, left side; Injury date: 06/15/23; Injury details: Injury left side of chest, tender 5-6 ant TECHNIQUE: Imaging protocol: Radiologic exam of the chest. Views: 2 views. COMPARISON: CR CHEST 2 VIEWS PA,LAT 11/17/2016 8:21 PM FINDINGS: Lungs: Unremarkable. No consolidation. Pleural spaces: Unremarkable. No pleural effusion. No pneumothorax. Heart/Mediastinum: Unremarkable. No cardiomegaly. Bones/joints: Unremarkable. IMPRESSION: No acute findings. Dictated and Authenticated by: Ayo Dunlap MD. Ordering:SAMAN Wilson MD
[2023-06-17] MEDS: Cyclobenzaprine 10 MG TAB, 3 TABS/BTL PO (21:06)
--- NOTE | 2023-06-22 10:04 | ED.GENADUL_ITS ---
Discharge Plan Disposition Patient Disposition: Home Condition: Stable Discharge Details Clinical Impression: Chest wall contusion Primary Care Provider: Jayant Torres ED Provider: Katie Jose Home Meds and New Rx's Prescriptions: New cyclobenzaprine 10 mg tablet 10 mg PO TID Qty: 14 0RF Continued cyclobenzaprine 10 mg tablet 10 mg PO TID PRN (Reason: muscle spasm) Qty: 10 0RF albuterol sulfate 90 mcg/actuation HFA aerosol inhaler 2 puff inhalation TID PRN (Reason: shortness of breath or wheezing) Qty: 8.5 1RF Rx Instructions: 3/day x 1 week, then PRN Discharge Instructions Instructions: Contusion in Adults (ED) Additional Instructions: Take Flexeril as needed for pain Do not take Flexeril and oxycodone within 8 hours of each other, oxycodone may be used sparingly if ibuprofen and Tylenol are ineffective, this is addictive and you should not operate your vehicle for 8 hours after taking this medication Take ibuprofen and Tylenol, ibuprofen 600 mg every 8 hours with food Tylenol 650 every 4-6 hours Return with worsening pain, shortness of breath, or with any new or progressing symptoms including fever Stand Alone Forms: Work Release Discharge Data Discharge Date/Time-TO BE ENTERED AT DEPARTURE: 06/17/23 21:09 Medical Decision Making This 38-year-old male presenting with trauma to left side of chest a week prior to arrival, x-ray of ribs was ordered and chest for further evaluation, does not show evidence of acute abnormality, patient has point tenderness in the left lateral rib cage over the mid axillary line, no crepitus, lungs clear to auscultation, distal pulses intact, no palpable abdominal tenderness or evidence of trauma, no CVA tenderness X-ray results per radiology interpretation my review are negative for acute pathology Return precautions reviewed and patient expressed understanding, very small amount of oxycodone supplied, 4 tabs, encouraged to continue practicing deep breathing exercises to prevent pneumonia Return precautions reviewed and patient expressed understanding, patient is aware that he may have a nondisplaced rib fracture that we are unable to further evaluate on basic chest x-ray, no evidence of pneumothorax, no indication for emergent CT scan or additional chest imaging at this time, vital stable HPI General Date/Time Provider Initiated Documentation: 06/17/23 19:14 . HPI Narrative: This 38-year-old gentleman presents with left-sided lateral chest pain after dropping a 300 pound dry shaft on his left side on 08 June. Denies any additional injuries. Was actually able to turn and remove this. Denies any head injury, fever, chills, associated shortness of breath, pain is exacerbated with movement. Related Data Home Medications Medication Instructions Recorded Confirmed albuterol sulfate 90 mcg/actuation 2 puff inhalation TID PRN 01/03/21 06/17/23 aerosol inhaler shortness of breath or wheezing #8.5 grams cyclobenzaprine 10 mg tablet 10 mg PO TID PRN muscle spasm #10 06/15/22 06/17/23 tabs cyclobenzaprine 10 mg tablet 10 mg PO TID #14 tabs 06/17/23 Previous Rx's Medication Instructions Recorded albuterol sulfate 90 mcg/actuation 2 puff inhalation TID PRN 01/03/21 aerosol inhaler shortness of breath or wheezing #8.5 grams cyclobenzaprine 10 mg tablet 10 mg PO TID PRN muscle spasm #10 06/15/22 tabs cyclobenzaprine 10 mg tablet 10 mg PO TID #14 tabs 06/17/23 Allergies Allergy/AdvReac Type Severity Reaction Status Date / Time ibuprofen AdvReac Intermediate upsets Verified 06/17/23 19:51 stomach General Stated Complaint: Trauma DARYA: 3 PFSH All Active Problems (Updated 06/17/23 @ 21:00 by ALISSA Akbar) Tonsillar hypertrophy (Acute 02/14/18) Recurrent streptococcal tonsillitis (Acute 02/14/18) Knee pain (Acute) ACL allograft reconstruction 12/04 Dr. Stratton Deviated nasal septum (Acute 02/14/18) Depression (Chronic) Tonsil stone (Acute) Right ear pain (Acute) Chest wall contusion (Acute) Medical History Cellulitis Surgical History S/P ACL repair Family History Other Asthma Social History Smoking/Tobacco Use Status: Current, status unknown Tobacco Type: smokeless tobacco Smokeless tobacco user: chewing tobacco Smoking risk assessment performed?: Yes Alcohol Intake: never Drug use: Never Substance use type: does not use Number of Children: 3 Communication Needs: None Do you feel safe at home: Yes Do you feel safe in your relationship?: Yes Course Vital Signs Vital signs: Vital Signs Temperature 37.1 C 06/17/23 19:06 Pulse 68 06/17/23 19:06 Respiratory Rate 20 06/17/23 19:06 Blood Pressure 140/86 06/17/23 19:06 Pulse Oximetry 99 06/17/23 19:06 Temperature 37.1 C 06/17/23 19:06 Temperature Source Oral 06/17/23 19:06 Pulse 68 06/17/23 19:06 Respiratory Rate 20 06/17/23 19:06 Respiratory Effort Short of Breath 06/17/23 19:48 Blood Pressure 140/86 06/17/23 19:06 Blood Pressure Position Sitting 06/17/23 19:06 Pulse Oximetry 99 06/17/23 19:06 Oxygen Delivery Method Room Air 06/17/23 19:06 Oxygen Flow Rate 0 06/17/23 19:06 Pain Level 5 06/17/23 19:06
== END 2023-06-17 21:09 | disposition home or self-care (01) ==
PROVIDERS: Emergency Provider Physician Assistant; PCP Nurse Practitioner Family
DX: S20.212A Contusion of left front wall of thorax, initial encounter (principal); X58.XXXA Exposure to other specified factors, initial encounter
CPT/HCPCS: 99283; 71046; 71100; 99284

== ENCOUNTER 2024-08-10 11:15 | Outpatient (REF) | payer BC, SELFPAY ==
[2024-08-10 23:37] LABS: HIV-1/2 Ag & Ab Screen Negative (Negative)
[2024-08-10 23:38] LABS: Hepatitis A Antibody IgM Negative (Negative); Hepatitis B Core Antibody Negative (Negative); Hepatitis B surface Ag Negative (Negative); Hepatitis C Ab w Rflx HCV PCR Negative (Negative)
[2024-08-11 11:23] LABS: Syphilis Serology (RPR) Negative (Negative)
[2024-08-11 12:00] LABS: Chlamydia Result Negative (Negative); GC Result Negative (Negative)
[2024-08-11 13:48] LABS: HSV Type 1 Ab, IgG Positive (Negative); HSV Type 2 Ab, IgG Negative (Negative)
== END 2024-08-10 11:16 | disposition home or self-care (01) ==
LOC: LBN 11:15
PROVIDERS: PCP Nurse Practitioner Family; Visit Provider Physician Assistant
DX: Z11.3 Encounter for screening for infections with a predominantly sexual mode of transmission (principal); A64 Unspecified sexually transmitted disease; Z30.9 Encounter for contraceptive management, unspecified; F41.9 Anxiety disorder, unspecified; B35.6 Tinea cruris; M54.9 Dorsalgia, unspecified
CPT/HCPCS: 86704; 86709; 86803; 87340; 87389; 87491; 87591; 86592; 86695; 86696